=== PATIENT | male | born 1950 | race Caucasian/White ===

== ENCOUNTER 2020-01-23 12:06 | Outpatient (REF) | payer MEDICARE, SELFPAY ==
[2020-01-23 14:49] LABS: Cholesterol 228 mg/dL; HDL Cholesterol 46 mg/dL; LDL Cholesterol Calculated 152 mg/dl; Triglycerides 153 mg/dL
== END 2020-01-23 12:07 | disposition home or self-care (01) ==
LOC: HO.HMGCLDS 12:06
PROVIDERS: PCP Internal Medicine; Visit Provider Internal Medicine
DX: E78.5 Hyperlipidemia, unspecified (principal)
CPT/HCPCS: 80061

== ENCOUNTER → 2020-02-23 10:27 | Outpatient (BNVA) | payer MEDICARE, SELFPAY | PROVIDERS: PCP Internal Medicine; Visit Provider Internal Medicine Cardiovascular Disease | DX: I11.9 Hypertensive heart disease without heart failure (principal); I71.2 Thoracic aortic aneurysm, without rupture; E78.5 Hyperlipidemia, unspecified; Z79.82 Long term (current) use of aspirin; Z79.899 Other long term (current) drug therapy | CPT/HCPCS: 93005; 99212 ==

== ENCOUNTER → 2020-03-14 14:38 | Outpatient (REF) | payer MEDICARE, SELFPAY ==
--- NOTE | 2020-03-14 14:43 | CA_ITS ---
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 The visually estimated ejection fraction is between 55-60%. - There is mild aortic valve regurgitation. - There is mild dilatation of the ascending aorta measuring 4.30 cm. Findings Left Ventricle Normal left ventricular cavity size. There is mildly increased left ventricular wall thickness. The left ventricular systolic function is normal. The visually estimated ejection fraction is between 55-60%. There is no evidence of regional wall motion abnormalities. Diastolic function is normal for age. Right Ventricle Normal right ventricular cavity size. There is normal right ventricular systolic function. Atria The left atrium is normal in size. The right atrium is normal in size. Aortic Valve There is a normal trileaflet aortic valve. There is no aortic valve stenosis. There is mild aortic valve regurgitation. Mitral Valve The mitral valve appears normal. There is trace mitral valve regurgitation. There is no mitral valve stenosis. Pulmonic Valve The pulmonic valve was not well visualized. Tricuspid Valve Normal tricuspid valve structure. There is mild tricuspid valve regurgitation. The pulmonary artery systolic pressure is normal. Great Vessels The aortic arch is normal in size. There is mild dilatation of the ascending aorta measuring 4.30 cm. Venous The inferior vena cava is normal in size and collapses greater than 50% with inspiration. Pericardium/Pleural There is no evidence of pericardial effusion. Prior Study Comparison Changes noted compared to prior study dated: 10/12/2018. slight increase in ascending aortic size. In 09/2017, reported as 4.23cm. Measurements 2D Linear Measurements IVSd: 1.22 0.6-0.9/0.6-1.0 cm LVIDd: 5.48 3.9-5.3/4.2-5.9 cm LVIDd Index: 2.29 2.4-3.2/2.2-3.1 cm/m2 LVIDs: 3.14 2.0-3.6 cm LVPWd: 1.21 0.7-1.1 cm Ao Root: 4.20 2.1-3.5 cm LA Diam: 4.00 2.7-3.8/3.0-4.0 cm LAIDs Index: 1.67 1.5-2.3 cm/m2 LV Mass: 343.56 67-162/88-224 g LV Mass Index: 143.75 43-95/49-115 g/m2 LVOT Diam: 2.20 3.0+(-)1.3 cm 2D Systolic Function EF 4C: 56.50 >55% EF 2C: 57.80 >55% EF BiP: 57.60 >55% Mitral Valve MV Pk E: 0.50 MV PK A: 0.74 MV Decel Time: 204.00 E/A: 0.70 E'Lateral: 7.74 E'Medial: 8.41 E/E' Med: 5.90 E/E' Lat: 6.50 PHT: 60.00 MVA PHT: 3.67 Decel [place]: 2.45 Aortic Valve AoV Pk Fabrice: 1.21 AoV Mn Fabrice: 0.84 AoV VTI: 0.24 AoV Pk Grad: 6.00 Aov Mn Grad: 3.00 ADALID Cont.VTI: 3.67 LVOT LVOT Pk Fabrice: 0.95 LVOT Mn Fabrice: 0.65 LVOT VTI: 0.23 LVOT Pk Grad: 4.00 LVOT Mn Grad: 2.00 LVOT Diam: 2.20 LVOT Area: 3.80 Diastolic Function MV Pk E: 0.50 MV Pk A: 0.74 E/A: 0.70 E'Medial: 8.41 E/E' Med: 5.90 E' Laterial: 7.74 E/E' Lat: 6.50 Tricuspid Valve TR Pk Fabrice: 2.21 TR Pk Grad: 20.00 RA Press: 3.00 RVSP: 23.00 Great Vessels Aorta Ao Root-2D: 4.20 2.0-3.7 cm Ao Asc: 4.30 2.1-3.4 cm Pulmonary Valve PV Pk Fabrice: 1.04 Peak PV Grad: 4.00 Updated in Other Vendor System with Status of Final Jose Shepherd MD electronically signed on 03/15/2020 10:58:40 AM with status of Final
== END ==
LOC: HO.CARD 14:38
PROVIDERS: Visit Provider Internal Medicine Cardiovascular Disease
DX: I11.9 Hypertensive heart disease without heart failure (principal); I71.2 Thoracic aortic aneurysm, without rupture
CPT/HCPCS: 93306

== ENCOUNTER 2020-04-11 09:00 | Outpatient (REF) | payer MEDICARE, SELFPAY ==
[2020-04-11 12:14] LABS: Vitamin D 25-OH Total 65.6 ng/mL (>30)
[2020-04-11 12:17] LABS: Alanine Aminotransferase 29 U/L (0-40); Anion Gap 19 (12-20); Aspartate Amino Transferase 15 U/L (5-37); Blood Urea Nitrogen 16 mg/dL (9-16); Calcium 9.1 mg/dL (8.4-10.2); Carbon Dioxide 22 mmol/L (22-29); Chloride 107 mmol/L (96-108); Cholesterol 207 mg/dL; Estimated Glomerular Filt Rate > 60; Glucose Fasting 102 mg/dL (60-99); HDL Cholesterol 52 mg/dL; LDL Cholesterol Calculated 127 mg/dl; Potassium 4.7 mmol/l (3.3-5.1); Sodium 143 mmol/L (135-145); Triglycerides 143 mg/dL
== END 2020-04-11 09:01 | disposition home or self-care (01) ==
LOC: HO.HMGCLDS 09:00
PROVIDERS: PCP Internal Medicine; Visit Provider Internal Medicine
DX: I10 Essential (primary) hypertension (principal); E55.9 Vitamin D deficiency, unspecified
CPT/HCPCS: 36415; 80048; 80061; 82306; 84450; 84460

== ENCOUNTER 2020-06-12 10:59 | Outpatient (REF) | payer MEDICARE, SELFPAY ==
[2020-06-12 14:45] LABS: Prostate Specific Antigen 0.69 ng/mL (<0.05-4.0)
== END 2020-06-12 11:00 | disposition home or self-care (01) ==
LOC: HO.HMGCLDS 10:59
PROVIDERS: PCP Internal Medicine; Visit Provider Urology
DX: Z12.5 Encounter for screening for malignant neoplasm of prostate (principal); R97.20 Elevated prostate specific antigen [PSA]
CPT/HCPCS: 36415; 84153

== ENCOUNTER → 2020-06-22 09:12 | Outpatient (BNVA) | payer MEDICARE, SELFPAY | PROVIDERS: Visit Provider Urology | DX: Z13.89 Encounter for screening for other disorder (principal) | CPT/HCPCS: Q3014 ==

== ENCOUNTER 2020-10-05 08:43 | Outpatient (REF) | payer MEDICARE, SELFPAY ==
[2020-10-05 12:17] LABS: Vitamin D 25-OH Total 75.3 ng/mL (>30)
[2020-10-05 12:18] LABS: Alanine Aminotransferase 23 U/L (0-40); Anion Gap 14 (12-20); Aspartate Amino Transferase 11 U/L (5-37); Blood Urea Nitrogen 15 mg/dL (9-16); Carbon Dioxide 24 mmol/L (22-29); Chloride 110 mmol/L (96-108); Cholesterol 202 mg/dL; Estimated Glomerular Filt Rate > 60; Glucose Fasting 100 mg/dL (60-99); HDL Cholesterol 48 mg/dL; LDL Cholesterol Calculated 140 mg/dl; Potassium 4.7 mmol/L (3.3-5.1); Sodium 143 mmol/L (135-145); Triglycerides 72 mg/dL
== END 2020-10-05 08:44 | disposition home or self-care (01) ==
LOC: HO.HMGCLDS 08:43
PROVIDERS: PCP Internal Medicine; Visit Provider Internal Medicine
DX: E78.00 Pure hypercholesterolemia, unspecified (principal); I71.2 Thoracic aortic aneurysm, without rupture; I11.9 Hypertensive heart disease without heart failure
CPT/HCPCS: 36415; 80048; 80061; 82306; 84450; 84460

== ENCOUNTER 2020-12-29 10:32 | Outpatient (REF) | payer MEDICARE, SELFPAY ==
[2020-12-29 13:53] LABS: Alanine Aminotransferase 34 U/L (0-40); Anion Gap 13 (12-20); Aspartate Amino Transferase 20 U/L (5-37); Blood Urea Nitrogen 14 mg/dL (9-16); Calcium 9.1 mg/dL (8.4-10.2); Carbon Dioxide 23 mmol/L (22-29); Chloride 109 mmol/L (96-108); Cholesterol 251 mg/dL; Estimated Glomerular Filt Rate > 60; Glucose Fasting 103 mg/dL (60-99); HDL Cholesterol 50 mg/dL; LDL Cholesterol Calculated 184 mg/dl; Potassium 5.1 mmol/L (3.3-5.1); Sodium 140 mmol/L (135-145); Triglycerides 85 mg/dL
== END 2020-12-29 10:33 | disposition home or self-care (01) ==
LOC: HO.HMGCLDS 10:32
PROVIDERS: PCP Internal Medicine; Visit Provider Internal Medicine
DX: E78.00 Pure hypercholesterolemia, unspecified (principal); I10 Essential (primary) hypertension; I71.2 Thoracic aortic aneurysm, without rupture
CPT/HCPCS: 36415; 80048; 80061; 84450; 84460

== ENCOUNTER → 2021-02-22 10:05 | Outpatient (BNVA) | payer MEDICARE, SELFPAY | PROVIDERS: PCP Internal Medicine; Referring Provider Internal Medicine; Visit Provider Internal Medicine Cardiovascular Disease | DX: I71.2 Thoracic aortic aneurysm, without rupture (principal); I11.9 Hypertensive heart disease without heart failure | CPT/HCPCS: 93005; 99212 ==

== ENCOUNTER → 2021-04-15 09:06 | Outpatient (REF) | payer MEDICARE, SELFPAY ==
--- NOTE | 2021-04-15 09:11 | CA_ITS ---
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 The calculated ejection fraction is 55% by biplane method. - The basal inferior segment is hypokinetic. - Trace to mild aortic regurgitation. - Ascending aorta measurements 4.3cm and 4.5cm. At sinus of valsalva 4cm. Findings Left Ventricle Normal left ventricular cavity size. There is moderately increased left ventricular wall thickness. The left ventricular systolic function is normal. The calculated ejection fraction is 55% by biplane method. E/E prime ratio is <8, consistent with normal filling pressures. Evidence suggests grade I (mild) diastolic dysfunction. Wall Motion Rest Echo Findings The basal inferior segment is hypokinetic. Right Ventricle Normal right ventricular cavity size and systolic function. Atria Both atria are normal in size. Aortic Valve There is a normal trileaflet aortic valve. There is no aortic valve stenosis. Trace to mild aortic regurgitation. Mitral Valve The mitral valve appears normal. There is trace mitral valve regurgitation. There is no mitral valve stenosis. Pulmonic Valve The pulmonic valve was not well visualized. Tricuspid Valve Normal tricuspid valve structure. There is mild tricuspid valve regurgitation. The pulmonary artery systolic pressure is normal. Great Vessels There is mild dilatation of the sinuses of Valsalva and moderate dilatation of the ascending aorta. Ascending aorta measurements 4.3cm and 4.5cm. At sinus of valsalva 4cm. Venous The inferior vena cava is normal in size. Pericardium/Pleural There is no evidence of pericardial effusion. Prior Study Comparison Changes noted compared to prior study dated: 03/14/2020. Slight increase in ascending aortic size. Could also be technical in nature. See comments on wall motion. Measurements 2D Linear Measurements IVSd: 1.24 0.6-0.9/0.6-1.0 cm LVIDd: 5.04 3.9-5.3/4.2-5.9 cm LVIDd Index: 2.14 2.4-3.2/2.2-3.1 cm/m2 LVIDs: 2.85 2.0-3.6 cm LVPWd: 1.25 0.7-1.1 cm Ao Root: 4.00 2.1-3.5 cm LA Diam: 4.30 2.7-3.8/3.0-4.0 cm LAIDs Index: 1.83 1.5-2.3 cm/m2 LV Mass: 310.89 67-162/88-224 g LV Mass Index: 132.29 43-95/49-115 g/m2 LVOT Diam: 2.50 3.0+(-)1.3 cm 2D Systolic Function EF 4C: 58.80 >55% EF 2C: 47.10 >55% EF BiP: 54.80 >55% Mitral Valve MV Pk E: 0.55 MV PK A: 0.75 MV Decel Time: 234.00 E/A: 0.70 E'Lateral: 6.85 E'Medial: 5.87 E/E' Med: 9.40 E/E' Lat: 8.10 PHT: 69.00 MVA PHT: 3.19 Decel [place]: 2.36 Aortic Valve AoV Pk Fabrice: 1.31 AoV Mn Fabrice: 0.93 AoV VTI: 0.32 AoV Pk Grad: 7.00 Aov Mn Grad: 4.00 ADALID Cont.VTI: 3.82 LVOT LVOT Pk Fabrice: 1.01 LVOT Mn Fabrice: 0.67 LVOT VTI: 0.25 LVOT Pk Grad: 4.00 LVOT Mn Grad: 2.00 LVOT Diam: 2.50 LVOT Area: 4.91 Diastolic Function MV Pk E: 0.55 MV Pk A: 0.75 E/A: 0.70 E'Medial: 5.87 E/E' Med: 9.40 E' Laterial: 6.85 E/E' Lat: 8.10 Right Ventricle TAPSE (mm): 22.00 TVS' Fabrice: 9.00 Tricuspid Valve TR Pk Fabrice: 2.54 TR Pk Grad: 26.00 Great Vessels Aorta Ao Root-2D: 4.00 2.0-3.7 cm Sinus of Valsalva: 4.00 2.0-3.5 cm Ao Asc: 4.50 2.1-3.4 cm Pulmonary Valve PV Pk Fabrice: 0.96 Peak PV Grad: 4.00 Updated in Other Vendor System with Status of Final Jose Shepherd MD electronically signed on 04/15/2021 4:53:06 PM with status of Final
== END ==
LOC: HO.CARD 09:06
PROVIDERS: PCP Internal Medicine; Visit Provider Internal Medicine Cardiovascular Disease
DX: I71.2 Thoracic aortic aneurysm, without rupture (principal)
CPT/HCPCS: 93306

== ENCOUNTER → 2021-06-26 09:07 | Outpatient (BNVA) | payer MEDICARE, SELFPAY | PROVIDERS: PCP Internal Medicine; Visit Provider Urology | DX: N40.0 Benign prostatic hyperplasia without lower urinary tract symptoms (principal) | CPT/HCPCS: 51798; 99212 ==

== ENCOUNTER 2021-06-26 10:45 | Outpatient (REF) | payer MEDICARE, SELFPAY ==
[2021-06-26 15:14] LABS: Alanine Aminotransferase 24 U/L (0-40); Anion Gap 12 (12-20); Aspartate Amino Transferase 16 U/L (5-37); Blood Urea Nitrogen 14 mg/dL (9-16); Calcium 9.6 mg/dL (8.4-10.2); Carbon Dioxide 25 mmol/L (22-29); Chloride 108 mmol/L (96-108); Cholesterol 251 mg/dL; Estimated Glomerular Filt Rate > 60; Glucose Fasting 103 mg/dL (60-99); HDL Cholesterol 46 mg/dL; LDL Cholesterol Calculated 186 mg/dl; Potassium 5.2 mmol/L (3.3-5.1); Sodium 140 mmol/L (135-145); Triglycerides 95 mg/dL
== END 2021-06-26 10:46 | disposition home or self-care (01) ==
LOC: HO.HMGCLDS 10:45
PROVIDERS: PCP Internal Medicine; Visit Provider Internal Medicine
DX: E78.00 Pure hypercholesterolemia, unspecified (principal); I10 Essential (primary) hypertension; I71.2 Thoracic aortic aneurysm, without rupture
CPT/HCPCS: 36415; 51798; 80048; 80061; 84450; 84460; 99212

== ENCOUNTER → 2022-02-24 10:34 | Outpatient (BNVA) | payer MEDICARE, SELFPAY | PROVIDERS: PCP Internal Medicine; Referring Provider Internal Medicine; Visit Provider Internal Medicine Cardiovascular Disease | DX: I71.20 Thoracic aortic aneurysm, without rupture, unspecified (principal) | CPT/HCPCS: 93005; 99212 ==

== ENCOUNTER → 2022-03-25 09:21 | Outpatient (REF) | payer MEDICARE, SELFPAY ==
--- NOTE | 2022-03-25 09:23 | CA_ITS ---
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 The calculated ejection fraction is 58% by biplane method. - Basal inferior segment appears hypokinetic; in some views akinetic. - There is mild dilatation of the sinuses of Valsalva measuring 4.29 cm and mild dilatation of the ascending aorta measuring 4.40 cm. Findings Left Ventricle Normal left ventricular cavity size. There is mildly increased left ventricular wall thickness. The left ventricular systolic function is normal. The calculated ejection fraction is 58% by biplane method. Diastolic function is normal for age. There is moderate septal asymmetric hypertrophy. Basal inferior segment appears hypokinetic; in some views akinetic. Right Ventricle Mildly increased right ventricular cavity size. There is normal right ventricular systolic function. Atria The left atrium is moderately dilated. The right atrium is mildly dilated. Aortic Valve There is a normal trileaflet aortic valve. There is no aortic valve stenosis. There is trace (trivial) aortic valve regurgitation. Mitral Valve The mitral valve appears normal. There is trace mitral valve regurgitation. There is no mitral valve stenosis. Pulmonic Valve The pulmonic valve is likely normal. Tricuspid Valve Normal tricuspid valve structure. There is mild tricuspid valve regurgitation. There is no evidence of pulmonary hypertension. Great Vessels There is mild dilatation of the sinuses of Valsalva measuring 4.29 cm and mild dilatation of the ascending aorta measuring 4.40 cm. Venous The inferior vena cava is mildly dilated and collapses greater than 50% with inspiration. Pericardium/Pleural There is no evidence of pericardial effusion. Prior Study Comparison No significant change compared to prior study dated: 04/15/2021. Measurements 2D Linear Measurements IVSd: 1.36 0.6-0.9/0.6-1.0 cm LVIDd: 5.09 3.9-5.3/4.2-5.9 cm LVIDd Index: 2.15 2.4-3.2/2.2-3.1 cm/m2 LVIDs: 3.63 2.0-3.6 cm LVPWd: 1.16 0.7-1.1 cm LA Diam: 3.90 2.7-3.8/3.0-4.0 cm LAIDs Index: 1.65 1.5-2.3 cm/m2 LV Mass: 321.19 67-162/88-224 g LV Mass Index: 135.52 43-95/49-115 g/m2 LVOT Diam: 2.20 3.0+(-)1.3 cm 2D Systolic Function EF 4C: 60.60 >55% EF 2C: 54.20 >55% EF BiP: 58.40 >55% Mitral Valve MV Pk E: 0.65 MV PK A: 0.63 MV Decel Time: 288.00 E/A: 1.00 E'Lateral: 7.07 E'Medial: 6.53 E/E' Med: 9.90 E/E' Lat: 9.20 PHT: 84.00 MVA PHT: 2.62 Decel [place]: 2.25 Aortic Valve AoV Pk Fabrice: 1.35 AoV Mn Fabrice: 1.02 AoV VTI: 0.32 AoV Pk Grad: 7.00 Aov Mn Grad: 5.00 ADALID Cont.VTI: 3.07 AI Pk Fabrice: 3.96 AI [place]: 1.79 LVOT LVOT Pk Fabrice: 1.04 LVOT Mn Fabrice: 0.74 LVOT VTI: 0.26 LVOT Pk Grad: 4.00 LVOT Mn Grad: 3.00 LVOT Diam: 2.20 LVOT Area: 3.80 Diastolic Function MV Pk E: 0.65 MV Pk A: 0.63 E/A: 1.00 E'Medial: 6.53 E/E' Med: 9.90 E' Laterial: 7.07 E/E' Lat: 9.20 Right Ventricle TAPSE (mm): 26.20 TVS' Fabrice: 10.80 Tricuspid Valve TR Pk Fabrice: 2.44 TR Pk Grad: 24.00 RA Press: 8.00 RVSP: 32.00 Great Vessels Aorta Sinus of Valsalva: 4.29 2.0-3.[address] [place]: 3.23 1.7-3.4 cm Ao Asc: 4.40 2.1-3.4 cm Updated in Other Vendor System with Status of Final Jose Shepherd MD electronically signed on 03/26/2022 11:40:25 AM with status of Final
== END ==
LOC: HO.CARD 09:21
PROVIDERS: PCP Internal Medicine; Visit Provider Internal Medicine Cardiovascular Disease
DX: I71.20 Thoracic aortic aneurysm, without rupture, unspecified (principal)
CPT/HCPCS: 93306

== ENCOUNTER → 2022-06-26 09:31 | Outpatient (BNVA) | payer MEDICARE, SELFPAY | PROVIDERS: PCP Internal Medicine; Visit Provider Urology | DX: N40.0 Benign prostatic hyperplasia without lower urinary tract symptoms (principal) | CPT/HCPCS: 51798; 99212 ==

== ENCOUNTER 2022-08-22 09:44 | Outpatient (REF) | payer MEDICARE, SELFPAY ==
[2022-08-22 12:39] LABS: Alanine Aminotransferase 22 U/L (0-40); Anion Gap 10 (12-20); Aspartate Amino Transferase 12 U/L (5-37); Blood Urea Nitrogen 16 mg/dL (9-16); Carbon Dioxide 26 mmol/L (22-29); Chloride 111 mmol/L (96-108); Cholesterol 231 mg/dL; Estimated Glomerular Filt Rate > 60; Glucose Fasting 101 mg/dL (60-99); HDL Cholesterol 42 mg/dL; LDL Cholesterol Calculated 174 mg/dl; Potassium 4.4 mmol/L (3.3-5.1); Sodium 143 mmol/L (135-145); Triglycerides 76 mg/dL
== END 2022-08-22 09:45 | disposition home or self-care (01) ==
LOC: HO.HMGCLDS 09:44
PROVIDERS: PCP Internal Medicine; Visit Provider Internal Medicine
DX: E78.00 Pure hypercholesterolemia, unspecified (principal); I11.9 Hypertensive heart disease without heart failure; I71.20 Thoracic aortic aneurysm, without rupture, unspecified
CPT/HCPCS: 36415; 80048; 80061; 84450; 84460

== ENCOUNTER 2023-02-24 09:56 | Outpatient (AMB) | payer MEDICARE, SELFPAY ==
--- NOTE | 2023-02-24 10:04 | MHC.OFFVIS ---
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 He has been doing very well from cardiac perspective. He denies any new symptoms. Remains very active. Denies any exertional chest pain or shortness of breath. His blood pressure is generally well controlled. He has occasional blood pressure is low and he gets lightheaded but this is very seldom. Denies any heart failure symptoms. His last LDL was 174 PFSH Medical History Scarlet fever Immunization refused Benign prostatic hyperplasia Hyperlipidemia Thoracic aortic aneurysm Hypertensive heart disease HTN (hypertension) Surgical History History of ankle surgery Family History Father Cancer Mother Stroke CVD (cardiovascular disease) Housing: House Alcohol intake: current Alcohol intake frequency: a few times a month Patient Tobacco Use Status: Never used Tobacco e-Cigarette/Vaping Use: Never Used service: No Current occupational status: retired Cognitive needs: No Hearing needs: No Vision needs: Yes Review of Systems Const Denies chills, Denies fatigue, Denies fever(s), Denies frequent falls, Denies weakness, Denies weight gain and Denies weight loss ENT Denies dizziness Card Denies chest pain, Denies leg edema, Denies lightheadedness, Denies palpitations, Denies dyspnea, Denies dyspnea on exertion, Denies orthopnea and Denies other (loss of consciousness) Resp Denies cough, Denies dyspnea and Denies dyspnea on exertion GI Denies hematochezia and Denies change in stool character Musc Denies abnormal gait, Denies muscle weakness, Denies numbness, Denies radiating pain into limb and Denies tingling Neuro Denies abnormal gait, Denies dizziness, Denies frequent falls, Denies numbness, Denies tingling and Denies weakness Endo Denies fatigue and Denies palpitations Physical Exam Vital Signs: Last Vital Signs Pulse 69 02/24/23 10:14 BP 110/66 02/24/23 10:14 BMI result Body Mass Index 32.0 Const General: cooperative, healthy appearing, comfortable, alert and awake Nutritional Appearance: obese Orientation/consciousness: patient oriented x3 Limitations: no limitations HEENT Head: Yes normal to inspection, Yes normocephalic and Yes atraumatic Eyes General: appearance normal, both eyes and all related structures Neck Neck: Yes full ROM, Yes trachea midline, Yes supple and Yes no JVD Carotids: other ( No carotid bruit) Chest Chest palpation & inspection: normal inspection of the chest Resp Effort & Inspection: normal respiratory effort Auscultation: clear to auscultation bilaterally Cardio Palpation: normal PMI Rate: regular rate Rhythm: regular rhythm Heart sounds: S1 normal heart sound present, S2 normal heart sound present and Other heart sounds present ( S4) Peripheral pulses: Peripheral pulses 2+ throughout GI Inspection: Yes obesity Auscultation: normal bowel sounds Skin General skin exam: no rashes or lesions noted Neuro General: patient oriented x3 and no focal motor deficits Extrem General: Yes no clubbing, cyanosis or edema Psych Appearance: grossly normal Office Procedures EKG Details: EKG shows normal sinus rhythm with left axis deviation incomplete right bundle-branch block at 69 beats per minute [id number], Complete Assessment & Plan Assessment & Plan (1) Thoracic aortic aneurysm: Comment: Followed by Dr. Rivera Code(s): I71.2 - Thoracic aortic aneurysm, without rupture Plan: Thoracic aortic aneurysm measuring up to 4.4 cm without any symptoms at this point time. No interventions required. Follow-up echocardiogram in a month's time. If there is rapid progression require more sooner appointment and follow-up. If none then will continue follow on a yearly basis. Aggressive risk factor modifications discussed. Blood pressure is well optimized continue the same. Continue low-dose aspirin therapy. Strongly recommend statin therapy as a secondary prevention to target goal LDL less than 70 mg/dL. He said he will think about it. (2) Hypertensive heart disease: Code(s): I11.9 - Hypertensive heart disease without heart failure Plan: Hypertensive heart disease without any evidence of heart failure. Blood pressure is currently well optimized advised to monitor blood pressure at home and maintain a log. Goal blood pressure less than 130/84. Low-salt diet was discussed. Advised to maintain activity level as tolerated. If his lightheaded episodes become more frequent need adjustment of his medications. Will follow up in the clinic in 14 months time, sooner p.r.n.. Thank you for allowing me to partake in his care Orders: Orders CA echo transthoracic complete 1 Month I71.2 - Thoracic aortic aneurysm, without rupture Coding Level of Care Code Est Pt Level 4 (54286) Diagnoses Thoracic aortic aneurysm I71.2 Hypertensive heart disease I11.9 CPT Codes EKG - CPT: 62916-[id number], Complete ([id number])
[2023-02-24 10:14] VITALS: BP 110/66; PULSE 69; BMI 32.0
== END 2023-02-24 10:39 | disposition home or self-care (01) ==
PROVIDERS: Visit Provider Internal Medicine Cardiovascular Disease
DX: I71.20 Thoracic aortic aneurysm, without rupture, unspecified (principal); I11.9 Hypertensive heart disease without heart failure
CPT/HCPCS: 93010; 99214

== ENCOUNTER → 2023-02-24 09:56 | Outpatient (BNVA) | payer MEDICARE, SELFPAY | PROVIDERS: Visit Provider Internal Medicine Cardiovascular Disease | DX: I11.9 Hypertensive heart disease without heart failure (principal); I71.20 Thoracic aortic aneurysm, without rupture, unspecified | CPT/HCPCS: 93005; 99212 ==

== ENCOUNTER → 2023-03-20 10:37 | Outpatient (REF) | payer MEDICARE, SELFPAY ==
--- NOTE | 2023-03-20 10:40 | CA_ITS ---
Transthoracic Echocardiogram Patient (Last, First, Middle): Killian Blount, Gender: Male Date of : 1950 Age: 72 Procedure Date: 03/20/2023 Procedure Type: Transthoracic Echocardiogram Location: OP Height: 187.96 cm Weight: 111.13 kg BSA: 2.37 m2 Heart Rate: 57 bpm BP: 110 / 70 mmHg Creative Project Manager: LEX Referring MD: Herb Rivera MD Symptoms: I71.2 - Thoracic aortic aneurysm, without rupture Study Quality: Adequate ECG Rhythm: Bradycardia Conclusions: - Normal left ventricular size and systolic function. There is mildly increased left ventricular wall thickness. The visually estimated ejection fraction is between 55-60%. - Normal right ventricular cavity size and systolic function. - There is mild dilatation of the sinuses of Valsalva measuring 4.40 cm and mild dilatation of the ascending aorta measuring 4.50 cm. Findings Left Ventricle Normal left ventricular size and systolic function. There is mildly increased left ventricular wall thickness. The visually estimated ejection fraction is between 55-60%. There is no evidence of regional wall motion abnormalities. Diastolic function is indeterminate on the basis of available data. Normal global longitudinal strain -18.8%. Right Ventricle Normal right ventricular cavity size and systolic function. Atria The left atrium is normal in size. Aortic Valve There is a normal trileaflet aortic valve. There is mild calcification of the aortic valve. There is no aortic valve stenosis. There is trace (trivial) aortic valve regurgitation. Mitral Valve The mitral valve appears normal. There is no mitral valve regurgitation. There is no mitral valve stenosis. Pulmonic Valve The pulmonic valve is likely normal. There is trace pulmonic valve regurgitation. Tricuspid Valve Normal tricuspid valve structure. There is trace tricuspid valve regurgitation. Mildly elevated right atrial pressure. There is no evidence of pulmonary hypertension. Great Vessels There is mild dilatation of the sinuses of Valsalva measuring 4.40 cm and mild dilatation of the ascending aorta measuring 4.50 cm. The visualized portions of the pulmonary artery and branches are normal. Venous The inferior vena cava is dilated and collapses greater than 50% with inspiration. Pericardium/Pleural There is no evidence of pericardial effusion. Prior Study Comparison Changes noted compared to prior study dated: 03/25/2022. Ascending aorta 4.5 cm from 4.4 cm. Sinus of valsalva 4.4 cm (previously 4.2 cm). Measurements 2D Linear Measurements IVSd: 1.21 0.6-0.9/0.6-1.0 cm LVIDd: 4.73 3.9-5.3/4.2-5.9 cm LVIDd Index: 2.00 2.4-3.2/2.2-3.1 cm/m2 LVIDs: 2.96 2.0-3.6 cm LVPWd: 1.22 0.7-1.1 cm LA Diam: 4.10 2.7-3.8/3.0-4.0 cm LAIDs Index: 1.73 1.5-2.3 cm/m2 LV Mass: 271.69 67-162/88-224 g LV Mass Index: 114.64 43-95/49-115 g/m2 LVOT Diam: 2.30 3.0+(-)1.3 cm 2D Systolic Function EF 4C: 54.30 >55% EF 2C: 63.20 >55% EF BiP: 59.70 >55% Aortic Valve AoV Pk Fabrice: 1.13 AoV Mn Fabrice: 0.84 AoV VTI: 0.28 AoV Pk Grad: 5.00 Aov Mn Grad: 3.00 ADALID Cont.VTI: 3.67 AI Pk Fabrice: 3.19 AI Bonner: 1.20 LVOT LVOT Pk Fabrice: 1.01 LVOT Mn Fabrice: 0.72 LVOT VTI: 0.24 LVOT Pk Grad: 4.00 LVOT Mn Grad: 2.00 LVOT Diam: 2.30 LVOT Area: 4.15 Tricuspid Valve TR Pk Fabrice: 2.43 TR Pk Grad: 24.00 RA Press: 8.00 RVSP: 32.00 Great Vessels Aorta Sinus of Valsalva: 4.40 2.0-3.5 cm Ao Asc: 4.50 2.1-3.4 cm Ao Arch: 3.50 Pulmonary Valve PV Pk Fabrice: 0.92 Peak PV Grad: 3.00 Updated in Other Vendor System with Status of Final Drew Bautista MD electronically signed on 03/20/2023 2:27:16 PM with status of Final
== END ==
LOC: HO.CARD 10:37
PROVIDERS: PCP Internal Medicine; Visit Provider Internal Medicine Cardiovascular Disease
DX: I71.20 Thoracic aortic aneurysm, without rupture, unspecified (principal)
CPT/HCPCS: 93306; 93356

== ENCOUNTER → 2023-03-20 10:40 | Outpatient (BNV) | payer MEDICARE, SELFPAY | PROVIDERS: PCP Internal Medicine; Visit Provider Internal Medicine Cardiovascular Disease | DX: I35.8 Other nonrheumatic aortic valve disorders (principal) | CPT/HCPCS: 93306 ==

== ENCOUNTER 2023-06-30 09:12 | Outpatient (AMB) | payer MEDICARE, SELFPAY ==
--- NOTE | 2023-06-30 09:20 | MHC.OFFVIS ---
Intake Intake Visit Reasons: 1Y PVR(Confirmed) Intake Note: Patient is Present for Follow Up PVR Urology Medication: Finasteride Antibiotic Allergies: None Blood Thinners:Aspirin Confirmed Pharmacy: [facility] PVR:22 Allergies mold Allergy (Unknown, Verified 06/30/23 09:21) unknown Medication List - Last Reconciled 06/30/23 by Dru Cantu MD aspirin (Adult Low Dose Aspirin) 81 mg PO DAILY cholecalciferol (vitamin D3) 250 mcg PO QWEEK finasteride 5 mg PO DAILY 90 days labetalol 100 mg PO BID lisinopril 2.5 mg (1/2 x 5 mg) PO DAILY multivitamin 1 tab PO DAILY saw palmetto 320 mg PO DAILY HPI HPI Comments History of Present Illness Details Killian CARTER is a very pleasant male. He is a patient of Dr Rea. 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 Good flow. Not waking at night Current treatment includes 06/22 , medication, 5-AR - every other day Prostate Symptom Score 11/18 , Moderate (9-19), Bother 3 06/22 , Mild (0-8), Bother 2. Symptoms include 02/21 , incomplete emptying, weak stream, and are progressing 06/22 , weak stream, and are improving. Prior Prostate Score unknown. PSA 06/22 1.5, 06/23 0.9, 06/24 0.7, 08/26 0.9 Prostate volume 30-50gm. Testing at next visit will include bladder scan [facility] Medical History Scarlet fever Immunization refused Benign prostatic hyperplasia Hyperlipidemia Thoracic aortic aneurysm Hypertensive heart disease HTN (hypertension) Surgical History History of ankle surgery Family History Father Cancer Mother Stroke CVD (cardiovascular disease) Social History Housing: House Alcohol intake: current Alcohol intake frequency: a few times a month Patient Tobacco Use Status: Never used Tobacco e-Cigarette/Vaping Use: Never Used service: No Current occupational status: retired Cognitive needs: No Hearing needs: No Vision needs: Yes Review of Systems Const Denies chills and Denies fever(s) Card Reports no additional complaints and Denies syncope Resp Denies cough GI Denies abdominal pain and Denies heartburn Reports as per HPI and Denies change in libido Neuro Denies syncope Psych Denies change in libido Endo Denies change in libido Physical Exam Const General: cooperative, healthy appearing, comfortable and no acute distress Orientation/consciousness: patient oriented x3 HEENT Face and sinus: Yes normal facial exam Mouth: moist mucous membranes Neck Neck: Yes normal visual inspection, Yes full ROM and Yes trachea midline Chest Chest palpation & inspection: normal inspection of the chest Resp Effort & Inspection: normal respiratory effort, able to speak in complete sentences and no respiratory distress GI Inspection: Yes normal to inspection Back/Spine/Pelvis Cervical Spine: normal cervical lordosis Thoracic/Lumbar Spine: thoracic and lumbar spine normal to inspection Skin General skin exam: no rashes or lesions noted Neuro General: patient oriented x3, gait normal, tone normal and moves all extremities Extrem General: Yes normal to inspection and Yes capillary refill normal Office Procedures Post Void Residual Post Residual Void Post Void Residual (PVR): 22 [id number] Void Residual by ultrasound Assessment & Plan Assessment & Plan (1) Benign prostatic hyperplasia: Comment: Followed by Dr. Cantu Code(s): N40.0 - Benign prostatic hyperplasia without lower urinary tract symptoms Plan Twelve month follow-up PVR Orders: Orders AMB Post Void Residual by ultrasound Today N40.0 - Benign prostatic hyperplasia without lower urinary tract symptoms Patient Instructions: Imaging studies, laboratory and physical exam results were discussed and reviewed in detail. No major barriers to patient understanding were identified. An opportunity to ask questions regarding the treatment plan was provided. All questions were answered. The patient expressed understanding and agreement with the above treatment plan. The patient is aware they should contact our office by phone for worsening of their current condition or the appearance of new urologic symptoms. Compliance is encouraged with any medications and followup testing that is ordered. It is a privilege to participate in the urologic care of your patient. If you have any questions or concerns regarding treatment for the above conditions, or other urologic issues, please do not hesitate to contact me. The office telephone contact is [phone]. This note is constructed using voice recognition software. While every effort has been made to ensure accuracy wax pumper errors may have been included. Yours sincerely, Dr Dru Cantu MD, [facility] - Urology Providers of Expert, Compassionate Care for the Genitourinary System Coding Level of Care Code Est Pt Level 4 (49413) Diagnoses Benign prostatic hyperplasia N40.0 CPT Codes Post Residual Void - PVR CPT Code: 15413-Gxwg Void Residual by ultrasound ([id number])
== END 2023-06-30 10:02 | disposition home or self-care (01) ==
PROVIDERS: Visit Provider Urology
DX: N40.0 Benign prostatic hyperplasia without lower urinary tract symptoms (principal)
CPT/HCPCS: 99213

== ENCOUNTER → 2023-06-30 09:12 | Outpatient (BNVA) | payer MEDICARE, SELFPAY | PROVIDERS: Visit Provider Urology | DX: N40.0 Benign prostatic hyperplasia without lower urinary tract symptoms (principal) | CPT/HCPCS: 51798; 99212 ==

== ENCOUNTER 2023-09-14 08:57 | Outpatient (AMB) | payer MEDICARE, SELFPAY ==
--- NOTE | 2023-09-14 09:09 | AM.OFFVISMDC ---
Intake Vital Signs 09/14/23 09:11 Height 6 ft 2 in Weight 251 lb BMI 32.2 BP 122/68 Blood Pressure Location Lt brachial Position Sitting Pulse 70 Pulse Source Pulse Oximeter Pulse Oximetry (%) 95 Oxygen Delivery Method Room Air Intake Visit Reasons: SWV G0439 Intake Note: Pt is here today for his SWV Last colonoscopy 06/23/14 Allergies mold Allergy (Unknown, Verified 09/14/23 10:09) unknown Medication List - Last Reconciled 09/14/23 by Ashlee Pedraza MD aspirin (Adult Low Dose Aspirin) 81 mg PO DAILY cholecalciferol (vitamin D3) 250 mcg PO QWEEK finasteride 5 mg PO DAILY 90 days labetalol 100 mg PO BID lisinopril 2.5 mg (1/2 x 5 mg) PO DAILY multivitamin 1 tab PO DAILY saw palmetto 320 mg PO DAILY HPI SWV G0439 HPI Details SWV ? 72-year-old male, with hypertension, hyperlipidemia, benign prostatic hyperplasia, history of thoracic aortic aneurysm, here today for his subsequent annual wellness visit. He is up-to-date with his screening colonoscopy done 06/23/2014, due again in 2024 . He currently is being followed by Urology, Dr. Cantu for his benign prostatic hyperplasia. He had a fasting lipid panel checked 08/22/2022 with elevated LDL cholesterol and fasting blood sugar in the prediabetic range. Patient however refused to start taking statins, does not believe in them. He also declines getting any vaccines but did receive Tdap in 2018. ? Medical / Social History Reviewed? Past Medical History ?Yes . ? [place] of Care / Care Team list updated ?Yes . ? Surgical/Hospitalization History ?Yes . ? Current Medications (including OTC and supplements) ?Yes . ? Family History ?Yes . ? Tobacco Control form ?Yes . ? AUDIT-C (Alcohol use) form ?Yes . ? Illicit drug use in Social History ?Yes . ? Current diagnosis of depression? ?No ? Appropriate PHQ2/PHQ9 completed ?Yes . ? Data entered by ?Accountant Manager and reviewed by provider ? Fall Risk ? Fall History? Have you had any falls with injury in the past year? ?No . ? Have you had two or more falls in the past year? ?No . ? Fall Risk Assessment: ?No falls in the past year . ? HRA filled out by the patient, reviewed by Provider and scanned. ? SWV ? Balance? Romberg ?negative . ? Tandem walk ?Yes . ? Walk and Turn ?Yes . ? Rise from sit to stand ?Yes . ?Vision? Corrective lens ?Yes ? Vision screen ? Up-to-date, goes to [facility], sought Dr. Barnes and has been referred to Dr. 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 ?Hearing? Whisper test ?pass . ?Written Plan?Completed. See Patient Documents.? [facility] Medical History Scarlet fever Immunization refused Benign prostatic hyperplasia Hyperlipidemia Thoracic aortic aneurysm Hypertensive heart disease HTN (hypertension) Surgical History History of ankle surgery Family History Father Cancer Mother Stroke CVD (cardiovascular disease) Social History Housing: House Alcohol intake: current Alcohol intake frequency: a few times a month Patient Tobacco Use Status: Never used Tobacco e-Cigarette/Vaping Use: Never Used service: No Current occupational status: retired Cognitive needs: No Hearing needs: No Vision needs: Yes Questionnaire Medicare Wellness Checkup [age] What gender do you identify with?: male During the past 4 weeks, how much have you been bothered by emotional problems such as feeling anxious, depressed, irritable, sad or downhearted, and blue?: not at all During the past 4 weeks, has your physical & emotional health limited your social activities with family, friends, neighbors, or groups?: not at all During the past 4 weeks, how much bodily pain have you generally had?: no pain During the past 4 weeks, was someone available to help you if you needed & wanted help?: yes, as much as I wanted During the past 4 weeks, what was the hardest physical activity you could do for at least 2 minutes?: very heavy Can you get to places out of walking distance without help? (For eg., can you travel alone on buses, taxis or drive your car?): Yes Can you go shopping for groceries or clothes without someone's help?: Yes Can you prepare your own meals?: Yes Can you do your housework without help?: Yes Because of any health problems, do you need the help of another person with your personal care needs such as eating, bathing, dressing or getting around the house?: No Can you handle your own money without help?: Yes During the past 4 weeks, how would you rate your health in general?: very good During the past 4 weeks how have things been going for you?: very well; could hardly better Are you having difficulties driving your car?: no Do you always fasten your seat belt when you are in a car?: yes, usually During past 4 weeks, have you been bothered by the following: never: Falling or dizzy when standing up, Trouble eating well?, Teeth or denture problems? and Problems using the telephone?, sometimes: Tiredness or fatigue? and often: Sexual problems? Have you fallen 2 or more times in the past year?: No Are you afraid of falling?: No Are you a smoker?: no During the past 4 weeks, how many drinks of wine, beer, or other alcoholic beverages did you have?: 1 drink or less per week Do you exercise for about 20 minutes 3 or more times a week?: yes, all the time Have you been given information to help with the following?: no: Hazards in your house that might hurt you? and no: Keeping track of your medications? How often do you have trouble taking medicines the way you have been told to take them?: I always take medicine as prescribed How confident are you that you can control & manage most of your health problems?: very confident What is your race?: White Mini Mental State Exam (MMSE) Orientation What is the (year) (season) (date) (day) (month)?: year (2023), season (Spring), date (09/14/2023), day (Thursday) and month (September) Where are we (state) (county) (town or city) (hospital) (floor)?: state ([place]), county ([place]), town or city ([place]) and hospital/clinic ([facility]) Score Score: 9 Activity of Daily Living Bathing - sponge bath, tub bath or shower: receives no assistance (gets in/out by self, if usual bathing means Dressing - getting clothes from closets & drawers, including inner/outer garments & fasteners.: gets clothes & gets completely dressed without help Toileting - going to the 'toilet room' for urine/bowel elimination & cleaning self/arranging clothes: goes to toilet room, cleans self, arranges clothes without help Transfer: moves in & out of bed and chair without help (may use support object) Continence: controls urination/bowel movements completely by self Feeding: feeds self without help Total Score: 0 Information obtained from: patient Using telephone: independent Traveling: independent Shopping: independent Preparing meals: independent Housework: independent Taking medicine: independent Managing money: independent PHQ-9 Over the last 2 weeks, how often have you been bothered by any of the following problems? 1. Little interest or pleasure in doing things: not at all 2. Feeling down, depressed, or hopeless: not at all 3. Trouble falling or staying asleep, or sleeping too much: several days 4. Feeling tired or having little energy: several days 5. Poor appetite or overeating: not at all 6. Feeling bad about yourself - or that you are a failure or have let yourself or your family down: not at all 7. Trouble concentrating on things, such as reading the newspaper or watching television: not at all 8. Moving or speaking so slowly that other people could have noticed. Or the opposite - being so fidgety or restless that you have been moving around a lot more than usual: not at all 9. Thoughts that you would be better off or of hurting yourself in some way: not at all Total score: 2 Depression Screening Interpretation: Negative Depression Screening Done: Yes 83164 - PHQ-9 Billing: Yes Source: Developed by Drs. Cuate King, Padma Gardner, Puma Owens and colleagues, with an educational polly from [employer]. Physical Exam Vital Signs: Last Vital Signs Pulse 70 09/14/23 09:11 BP 122/68 09/14/23 09:11 Pulse Ox 95 09/14/23 09:11 Oxygen Delivery Method Room Air 09/14/23 09:11 BMI result Body Mass Index 32.2 Assessment & Plan Assessment & Plan (1) Encounter for subsequent annual wellness visit (AWV) in Medicare patient: Code(s): Z00.00 - Encounter for general adult medical examination without abnormal findings Plan: Medical wellness checklist reviewed, discussed with patient and updated. Patient does not want to get any vaccinations. Up-to-date with his screening colonoscopy, has known hyperlipidemia but does not want to start any statins, wants to do it through diet and exercise. (2) Hyperlipidemia: Code(s): E78.5 - Hyperlipidemia, unspecified Qualifiers: Hyperlipidemia type: pure hypercholesterolemia Qualified Code(s): E78.00 - Pure hypercholesterolemia, unspecified Plan: Refusing to take any statin, has been following a low-cholesterol diet and getting regular exercise (3) Benign prostatic hyperplasia: Comment: Followed by Dr. Cantu Code(s): N40.0 - Benign prostatic hyperplasia without lower urinary tract symptoms Plan: Followed by Urology, currently on finasteride 5 mg daily (4) Thoracic aortic aneurysm: Comment: Followed by Dr. Rivera Code(s): I71.2 - Thoracic aortic aneurysm, without rupture Plan: Followed by cardiology, currently on aspirin 81 mg daily (5) Hypertensive heart disease: Code(s): I11.9 - Hypertensive heart disease without heart failure Plan: Currently on labetalol, lisinopril Quality Reporting (2019) Depression/Bipolar (159/160/161/177) PHQ-9: Total score: 2 Coding Level of Care Code Medicare Subsequent (G0439) Diagnoses Encounter for subsequent annual wellness visit (AWV) in Medicare patient Z00.00 Pure hypercholesterolemia E78.00 Hyperlipidemia type: pure hypercholesterolemia Benign prostatic hyperplasia N40.0 Thoracic aortic aneurysm I71.2 Hypertensive heart disease I11.9 CPT Codes Advance Care Planning - Advance Care Planning discussion: On file, no changes ([id number]) Advance Care Planning - Time spent: 1-15 minutes, on File ([id number]) Advance Care Planning Advance Care Planning discussion: On file, no changes Date of discussion: 09/10/22 Who was present: Patient Forms completed: Health Care Proxy and MOLST Time spent: 1-15 minutes, on File Actual minutes spent: 15
[2023-09-14 09:11] VITALS: BP 122/68; PULSE 70; O2SAT 95; BMI 32.2
== END 2023-09-14 10:26 | disposition home or self-care (01) ==
PROVIDERS: PCP Internal Medicine; Visit Provider Internal Medicine
DX: Z00.00 Encounter for general adult medical examination without abnormal findings (principal); E78.00 Pure hypercholesterolemia, unspecified; N40.0 Benign prostatic hyperplasia without lower urinary tract symptoms; I71.20 Thoracic aortic aneurysm, without rupture, unspecified; I11.9 Hypertensive heart disease without heart failure
CPT/HCPCS: 1123F; G0439

== ENCOUNTER → 2024-03-22 07:40 | Outpatient (REF) | payer MEDICARE, SELFPAY ==
--- NOTE | 2024-03-22 07:44 | CA_ITS ---
Transthoracic Echocardiogram Patient (Last, First, Middle): Killian Blount, Gender: Male Date of : 1950 Age: 73 Procedure Date: 03/22/2024 Procedure Type: Transthoracic Echocardiogram Location: OP Height: 187. cm Weight: 111.13 kg BSA: 2.36 m2 Heart Rate: 61 bpm BP: 120 / 70 mmHg Bi Architect: LEX Referring MD: Herb Rivera MD Symptoms: I71.2 - Thoracic aortic aneurysm, without rupture Study Quality: Adequate ECG Rhythm: Sinus Conclusions: - The left ventricular systolic function is normal. The calculated ejection fraction is 65% by biplane method. - No obvious valvular pathology seen on this study. - There is mild dilatation of the ascending aorta measuring 4.30 cm. Findings Left Ventricle Normal left ventricular cavity size. There is mildly increased left ventricular wall thickness. The left ventricular systolic function is normal. The calculated ejection fraction is 65% by biplane method. There is no evidence of regional wall motion abnormalities. Diastolic function is normal for age. LV peak GLS -19.9%. Right Ventricle Mildly increased right ventricular cavity size. There is normal right ventricular systolic function. Atria The left atrium is mildly dilated. The right atrium is normal in size. Aortic Valve There is a normal trileaflet aortic valve. There is no aortic valve stenosis. There is trace (trivial) aortic valve regurgitation. Mitral Valve The mitral valve appears normal. There is no mitral valve regurgitation. There is no mitral valve stenosis. Pulmonic Valve The pulmonic valve is likely normal. Tricuspid Valve There is trace tricuspid valve regurgitation. There is no evidence of pulmonary hypertension. Great Vessels The aortic arch is normal in size. There is mild dilatation of the ascending aorta measuring 4.30 cm. Venous The inferior vena cava is normal in size and collapses greater than 50% with inspiration. Pericardium/Pleural There is no evidence of pericardial effusion. Prior Study Comparison Changes noted compared to prior study dated: 03/20/2023. Ascending aorta dimensions smaller than prior study, but could be technical. Recommendations, Care & Conclusions No obvious valvular pathology seen on this study. Measurements 2D Linear Measurements IVSd: 1.26 0.6-0.9/0.6-1.0 cm LVIDd: 4.79 3.9-5.3/4.2-5.9 cm LVIDd Index: 2.03 2.4-3.2/2.2-3.1 cm/m2 LVIDs: 2.30 2.0-3.6 cm LVPWd: 1.14 0.7-1.1 cm LA Diam: 3.40 2.7-3.8/3.0-4.0 cm LAIDs Index: 1.44 1.5-2.3 cm/m2 LV Mass: 272.26 67-162/88-224 g LV Mass Index: 115.37 43-95/49-115 g/m2 LVOT Diam: 2.30 3.0+(-)1.3 cm 2D Systolic Function EF 4C: 64.70 >55% EF 2C: 65.30 >55% EF BiP: 65.30 >55% Mitral Valve MV Pk E: 0.54 MV PK A: 0.66 MV Decel Time: 387.00 E/A: 0.80 E'Lateral: 7.40 E'Medial: 7.07 E/E' Med: 7.60 E/E' Lat: 7.20 PHT: 113.00 MVA PHT: 1.95 Decel [place]: 1.38 Aortic Valve AoV Pk Fabrice: 1.14 AoV Mn Fabrice: 0.85 AoV VTI: 0.28 AoV Pk Grad: 5.00 Aov Mn Grad: 3.00 ADALID Cont.VTI: 3.29 LVOT LVOT Pk Fabrice: 0.93 LVOT Mn Fabrice: 0.66 LVOT VTI: 0.22 LVOT Pk Grad: 3.00 LVOT Mn Grad: 2.00 LVOT Diam: 2.30 LVOT Area: 4.15 Diastolic Function MV Pk E: 0.54 MV Pk A: 0.66 E/A: 0.80 E'Medial: 7.07 E/E' Med: 7.60 E' Laterial: 7.40 E/E' Lat: 7.20 Right Ventricle TAPSE (mm): 21.40 TVS' Fabrice: 11.20 Tricuspid Valve TR Pk Fabrice: 2.03 TR Pk Grad: 16.00 RA Press: 8.00 RVSP: 24.00 Great Vessels Aorta Sinus of Valsalva: 3.80 2.0-3.5 cm Ao Asc: 4.30 2.1-3.4 cm Ao Arch: 3.50 Pulmonary Valve PV Pk Fabrice: 0.81 Peak PV Grad: 3.00 Updated in Other Vendor System with Status of Final Jose Shepherd MD electronically signed on 03/24/2024 12:02:02 PM with status of Final
== END ==
LOC: HO.CARD 07:40
PROVIDERS: PCP Internal Medicine; Visit Provider Internal Medicine Cardiovascular Disease
DX: I11.9 Hypertensive heart disease without heart failure (principal); I71.20 Thoracic aortic aneurysm, without rupture, unspecified
CPT/HCPCS: 93306

== ENCOUNTER → 2024-03-22 07:44 | Outpatient (BNV) | payer MEDICARE, SELFPAY | PROVIDERS: PCP Internal Medicine; Visit Provider Internal Medicine | DX: I71.21 Aneurysm of the ascending aorta, without rupture (principal); I51.89 Other ill-defined heart diseases | CPT/HCPCS: 93306; 93356 ==

== ENCOUNTER 2024-04-21 10:12 | Outpatient (AMB) | payer MEDICARE, SELFPAY ==
--- NOTE | 2024-04-21 10:31 | A.OFFVIS_ITS ---
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 Denies any new cardiac symptoms. Remains very active. Denies any prolonged palpitation irregular heartbeat. Denies any worsening shortness of breath, orthopnea, PND. No exertional chest pain. His echocardiogram shows preserved LV ejection fraction with mildly dilated ascending aorta at 4.3 cm. No significant change. LDL remains significantly elevated. [facility] Medical History Scarlet fever Immunization refused Benign prostatic hyperplasia Hyperlipidemia Thoracic aortic aneurysm Hypertensive heart disease HTN (hypertension) Surgical History History of ankle surgery Family History Father Cancer Mother Stroke CVD (cardiovascular disease) Social History Housing: House Alcohol intake: current Alcohol intake frequency: a few times a month Patient Tobacco Use Status: Never used Tobacco e-Cigarette/Vaping Use: Never Used service: No Current occupational status: retired Cognitive needs: No Hearing needs: No Vision needs: Yes Review of Systems Const Denies chills, Denies fatigue, Denies fever(s), Denies frequent falls, Denies weakness, Denies weight gain and Denies weight loss ENT Denies dizziness Card Denies chest pain, Denies leg edema, Denies lightheadedness, Denies palpitations, Denies dyspnea, Denies dyspnea on exertion, Denies orthopnea and Denies other (loss of consciousness) Resp Denies cough, Denies dyspnea and Denies dyspnea on exertion GI Denies hematochezia and Denies change in stool character Musc Denies abnormal gait, Denies muscle weakness, Denies numbness, Denies radiating pain into limb and Denies tingling Neuro Denies abnormal gait, Denies dizziness, Denies frequent falls, Denies numbness, Denies tingling and Denies weakness Endo Denies fatigue and Denies palpitations Physical Exam Vital Signs: Last Vital Signs Pulse 65 04/21/24 10:34 BP 126/74 04/21/24 10:34 BMI result Body Mass Index 31.1 Const General: cooperative, healthy appearing, comfortable, alert and awake Nutritional Appearance: obese Orientation/consciousness: patient oriented x3 Limitations: no limitations HEENT Head: Yes normal to inspection, Yes normocephalic and Yes atraumatic Eyes General: appearance normal, both eyes and all related structures Neck Neck: Yes full ROM, Yes trachea midline, Yes supple and Yes no JVD Carotids: other ( No carotid bruit) Chest Chest palpation & inspection: normal inspection of the chest Resp Effort & Inspection: normal respiratory effort Auscultation: clear to auscultation bilaterally Cardio Palpation: normal PMI Rate: regular rate Rhythm: regular rhythm Heart sounds: S1 normal heart sound present, S2 normal heart sound present and Other heart sounds present ( S4) Peripheral pulses: Peripheral pulses 2+ throughout GI Inspection: Yes obesity Auscultation: normal bowel sounds Skin General skin exam: no rashes or lesions noted Neuro General: patient oriented x3 and no focal motor deficits Extrem General: Yes no clubbing, cyanosis or edema Psych Appearance: grossly normal Office Procedures EKG Details: EKG shows normal sinus rhythm with left axis deviation with incomplete right bundle-branch block with LVH criteria with nonspecific ST T wave changes [id number], Complete Assessment & Plan Assessment & Plan (1) Thoracic aortic aneurysm: Comment: Followed by Dr. Rivera Code(s): I71.2 - Thoracic aortic aneurysm, without rupture Category: Medical Plan: Thoracic aortic aneurysm which is mild. Continue to monitor annually by echocardiogram. Continue aggressive blood pressure control. Advised to avoid sudden strenuous isometric exercise. Management of aneurysm was discussed and does not appear that requires repair at this point in time. (2) Hypertensive heart disease: Code(s): I11.9 - Hypertensive heart disease without heart failure Category: Medical Plan: Hypertension with hypertensive heart disease. Clinically no signs and symptoms of heart failure. Blood pressure is extremely well optimized on current therapy importance of good blood pressure control was discussed. He understands and agrees. Low-salt diet was discussed advised to maintain activity level as tolerated. His LDL significantly elevated and suggest correction although he is adamant about not using any lipid lowering therapy. Rationale was discussed. He understands agrees. Follow up in the clinic in 1 year's time, sooner p.r.n.. Thank you for allowing me to partake in his care Orders: Orders CA echo transthoracic complete 1 Year I71.2 - Thoracic aortic aneurysm, without rupture Coding Level of Care Code Est Pt Level 4 (08639) Complex EM visit Add On G2211 Diagnoses Thoracic aortic aneurysm I71.2 Hypertensive heart disease I11.9 CPT Codes EKG - CPT: 97408-[id number], Complete ([id number])
[2024-04-21 10:34] VITALS: BP 126/74; PULSE 65; BMI 31.1
== END 2024-04-21 11:31 | disposition home or self-care (01) ==
PROVIDERS: PCP Internal Medicine; Visit Provider Internal Medicine Cardiovascular Disease
DX: I71.20 Thoracic aortic aneurysm, without rupture, unspecified (principal); I11.9 Hypertensive heart disease without heart failure
CPT/HCPCS: 93010; 99214; G2211

== ENCOUNTER → 2024-04-21 10:12 | Outpatient (BNVA) | payer MEDICARE, SELFPAY | PROVIDERS: PCP Internal Medicine; Visit Provider Internal Medicine Cardiovascular Disease | DX: I71.20 Thoracic aortic aneurysm, without rupture, unspecified (principal); I11.9 Hypertensive heart disease without heart failure | CPT/HCPCS: 93005; 99212 ==

== ENCOUNTER 2024-06-29 09:12 | Outpatient (AMB) | payer MEDICARE, SELFPAY ==
--- NOTE | 2024-06-29 09:18 | MHC.OFFVIS ---
Intake Visit Reasons: 1y/PVR Intake Note: Patient is Present for 1Y Follow Up PVR Urology Medication: Finasteride Antibiotic Allergies: None Blood Thinners:Aspirin PVR:22 TODAY'S PVR:112ML'S Hazardous Substances Scientist Required: No Allergies mold Allergy (Unknown, Verified 06/29/24 09:19) unknown HPI Comments Details: Killian CARTER is a very pleasant male. He is a patient of Dr Rea. 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 Good flow. Not waking at night Current treatment includes 06/22 , medication, 5-AR - every other day Prostate Symptom Score 02/21 , Moderate (9-19), Bother 3 06/22 , Mild (0-8), Bother 2. Symptoms include 02/21 , incomplete emptying, weak stream, and are progressing 06/22 , weak stream, and are improving. Prior Prostate Score unknown. PSA 06/22 1.5, 06/23 0.9, 06/24 0.7, 08/26 0.9 Prostate volume 30-50gm. Testing at next visit will include bladder scan [facility] Medical History Scarlet fever Immunization refused Benign prostatic hyperplasia Hyperlipidemia Thoracic aortic aneurysm Hypertensive heart disease HTN (hypertension) Surgical History History of ankle surgery Family History Father Cancer Mother Stroke CVD (cardiovascular disease) Social History Housing: House Alcohol intake: current Alcohol intake frequency: a few times a month Patient Tobacco Use Status: Never used Tobacco e-Cigarette/Vaping Use: Never Used service: No Current occupational status: retired Cognitive needs: No Hearing needs: No Vision needs: Yes Review of Systems Const Denies chills and Denies fever(s) Card Reports no additional complaints and Denies syncope Resp Denies cough GI Denies abdominal pain and Denies heartburn Reports as per HPI and Denies change in libido Neuro Denies syncope Psych Denies change in libido Endo Denies change in libido Physical Exam Const General: cooperative, healthy appearing, comfortable and no acute distress Orientation/consciousness: patient oriented x3 HEENT Face and sinus: Yes normal facial exam Mouth: moist mucous membranes Neck Neck: Yes normal visual inspection, Yes full ROM and Yes trachea midline Chest Chest palpation & inspection: normal inspection of the chest Resp Effort & Inspection: normal respiratory effort, able to speak in complete sentences and no respiratory distress GI Inspection: Yes normal to inspection Back/Spine/Pelvis Cervical Spine: normal cervical lordosis Thoracic/Lumbar Spine: thoracic and lumbar spine normal to inspection Skin General skin exam: no rashes or lesions noted Neuro General: patient oriented x3, gait normal, tone normal and moves all extremities Extrem General: Yes normal to inspection and Yes capillary refill normal Office Procedures Post Void Residual Post Residual Void Post Void Residual (PVR): 112 [id number]-Fhzo Void Residual by ultrasound Results AMB Urinalysis, Automated UA Leukoctes 0 Celia/uL Last Edit by OLEKSANDR Bradley on 06/29/24 09:30 UA Nitrite Negative Last Edit by OLEKSANDR Bradley on 06/29/24 09:30 UA Urobilinogen 3.5 mg/dL Last Edit by OLEKSANDR Bradley on 06/29/24 09:30 UA Protein 15 mg/dL Last Edit by OLEKSANDR Bradley on 06/29/24 09:30 UA pH 5.5 Last Edit by OLEKSANDR Bradley on 06/29/24 09:30 UA Blood 0 Nishant/uL Last Edit by OLEKSANDR Bradley on 06/29/24 09:30 UA Specific [place] 1.030 Last Edit by OLEKSANDR Bradley on 06/29/24 09:30 UA Ketone Negative Last Edit by OLEKSANDR Bradley on 06/29/24 09:30 UA Bilirubin 0 mg/dL Last Edit by OLEKSANDR Bradley on 06/29/24 09:30 UA Glucose 0 mg/dL Last Edit by OLEKSANDR Bradley on 06/29/24 09:30 Results Reviewed Results Reviewed: Laboratory Last Values Urine pH (Auto) 5.5 06/29/24 09:29 Specific [place] (Auto) 1.030 06/29/24 09:29 Urine Protein (Auto) 15 mg/dL 06/29/24 09:29 Glucose (UA)(Auto) 0 mg/dL 06/29/24 09:29 Urine Ketones (Auto) Negative 06/29/24 09:29 Urine Blood (Auto) 0 Nishant/uL 06/29/24 09:29 Urine Nitrite (Auto) Negative 06/29/24 09:29 Urine Bilirubin (Auto) 0 mg/dL 06/29/24 09:29 Urine Urobilinogen (Auto) 3.5 mg/dL 06/29/24 09:29 Leukocyte Esterase (Auto) 0 Celia/uL 06/29/24 09:29 Assessment & Plan Assessment & Plan (1) Benign prostatic hyperplasia: Comment: Followed by Dr. Cantu Code(s): N40.0 - Benign prostatic hyperplasia without lower urinary tract symptoms Category: Medical Plan 12 month follow-up office Orders: Orders AMB Urinalysis Automated Today Z13.9 - Encounter for screening, unspecified Prostate Specific Antigen 364 Days N40.0 - Benign prostatic hyperplasia without lower urinary tract symptoms Patient Instructions: This note is constructed using voice recognition software. While every effort has been made to ensure accuracy diversity manager errors may have been included. Imaging studies, laboratory and physical exam results were discussed and reviewed in detail. No major barriers to patient understanding were identified. An opportunity to ask questions regarding the treatment plan was provided. All questions were answered. The patient expressed understanding and agreement with the above treatment plan. The patient is aware they should contact our office by phone for worsening of their current condition or the appearance of new urologic symptoms. Compliance is encouraged with any medications and followup testing that is ordered. It is a privilege to participate in the urologic care of your patient. If you have any questions or concerns regarding treatment for the above conditions, or other urologic issues, please do not hesitate to contact me. The office telephone contact is [phone]. Sincerely, Dr Dru Cantu MD, PADMIN[facility] - Urology Compassionate Specialist Care for the Genitourinary System Coding Level of Care Code Est Pt Level 4 (35750) Complex EM visit Add On G2211 Diagnoses Benign prostatic hyperplasia N40.0 CPT Codes Post Residual Void - PVR CPT Code: 38188-Zbgg Void Residual by ultrasound ([id number])
== END 2024-06-29 10:09 | disposition home or self-care (01) ==
LOC: HO.HUSH 09:13
PROVIDERS: PCP Internal Medicine; Visit Provider Urology
DX: Z13.9 Encounter for screening, unspecified (principal); N40.0 Benign prostatic hyperplasia without lower urinary tract symptoms
CPT/HCPCS: 99214; G2211

== ENCOUNTER → 2024-06-29 09:12 | Outpatient (BNVA) | payer MEDICARE, SELFPAY | PROVIDERS: PCP Internal Medicine; Visit Provider Urology | DX: N40.0 Benign prostatic hyperplasia without lower urinary tract symptoms (principal) | CPT/HCPCS: 51798; 81003; 99212 ==

== ENCOUNTER 2024-09-29 09:53 | Outpatient (REF) | payer MEDICARE, SELFPAY ==
--- OUTSIDE RECORDS SUMMARY | 2024-09-29 11:19 | XMS_ITS | Patient Health Record ---
Author Organization [facility] Address [address] [place] [address] Care Team Providers Care Videotape Recording Engineer Name Role Phone Rona Calle, Christopher Primary Care Provider Jeimy Carlos Harris Jr Unavailable [phone] Reason For Referral No Information Medications Medication SIG (Take, Route, Frequency, Duration) Notes Start Date End Date Status Colyte with Flavor Packs 240 GM As direc zack Orally Over the specified time. for 1 day(s) 02/15/2014 Active hydroCHLOROthiazide 25 MG 1 tablet Orall y Once a day Active amLODIPine Besylate 5 MG 1 tablet Orally Once a day Active Labetalol HCl 200 MG Orally Active Problems Problem Type SNOMED Code ICD Code Onset Dates Problem Status W/U Status Risk Notes Problem 152190273 Colon cancer screening (V76.51) Active confirmed Problem 89762275 Essential hypertension (401.9) Active confirmed Plan Of Treatment Future Test Test Name Order Date COLONOSCOPY 02/15/2014 Insurance Providers Payer Name Payer Address Payer Phone Subscriber Number Group Number Insured Name Patient Relationship to Insured Coverage Start Date Coverage End Date MEDICARE OF [place] [address] [place] [address] [id number] PANCHO CARTER Self - patient is the insured [employer] ATT[employer] CLAIMS [address] [place] [phone] [id number] PANCHO CARTER Self - patient is the insured Medical (General) History Medical History History ICD Code Denies [place],DM,CVA,Lung disease,renal dise ase hypertension Surgical History Surgery Date(Month/Year) lower tibia right ankle
[2024-09-29 13:38] LABS: Alanine Aminotransferase 22 U/L (0-40); Anion Gap 11 (12-20); Aspartate Amino Transferase 16 U/L (5-37); Blood Urea Nitrogen 16 mg/dL (9-16); Calcium 9.2 mg/dL (8.4-10.2); Carbon Dioxide 24 mmol/L (22-29); Chloride 109 mmol/L (96-108); Estimated Glomerular Filt Rate > 60; Glucose Fasting 112 mg/dL (60-99); Sodium 140 mmol/L (135-145)
[2024-09-29 14:00] LABS: Vitamin D 25-OH Total 56.6 ng/mL (>30)
== END 2024-09-29 09:54 | disposition home or self-care (01) ==
LOC: HO.HMGCLDS 09:53
PROVIDERS: PCP Internal Medicine; Visit Provider Internal Medicine
DX: I11.9 Hypertensive heart disease without heart failure (principal)
CPT/HCPCS: 36415; 80048; 82306; 84450; 84460

== ENCOUNTER 2024-10-04 10:44 | Outpatient (AMB) | payer MEDICARE, SELFPAY ==
--- NOTE | 2024-10-04 10:47 | A.OFFVIS_ITS ---
Intake Vital Signs 10/04/24 10:50 Height 6 ft 2 in Weight 247 lb BMI 31.7 BP 116/72 Blood Pressure Location Rt brachial Position Sitting Respiration 15 Pulse 63 Pulse Source Pulse Oximeter Temp 98.3 F Temp Source Oral Pulse Oximetry (%) 96 Intake Visit Reasons: SWV G0439 Intake Note: Pt is here today for his SWV: last colonoscopy 06/23/14 Allergies mold Allergy (Unknown, Verified 10/04/24 14:12) unknown Medication List - Last Reconciled 10/04/24 by Ashlee Pedraza MD aspirin (Adult Low Dose Aspirin) 81 mg PO DAILY cholecalciferol (vitamin D3) 250 mcg PO QWEEK finasteride 5 mg PO DAILY 90 days labetalol 100 mg PO BID lisinopril 2.5 mg (1/2 x 5 mg) PO DAILY multivitamin 1 tab PO DAILY saw palmetto 320 mg PO DAILY HPI SWV G0439 HPI Details SWV ? 73 year-old male, with hypertension, hyperlipidemia, benign prostatic hyperplasia, history of thoracic aortic aneurysm, here today for his subsequent annual wellness visit. He i is due for a screening colonoscopy, last done 06/23/2014. Patient wants to do Cologuard testing instead as last colonoscopy screening came back with normal findings. He currently is being followed by Urology, Dr. Cantu for his benign prostatic hyperplasia. He had a fasting lipid panel checked 08/22/2022 with elevated LDL cholesterol and fasting blood sugar in the prediabetic range was checked do 09/23/2024 which came back at 112 mg/dL. Patient refuses to start taking statins, does not believe in them. He also declines getting any vaccines but did receive Tdap in 2018. ? Medical / Social History Reviewed? Past Medical History ?Yes . ? [place] of Care / Care Team list updated ?Yes . ? Surgical/Hospitalization History ?Yes . ? Current Medications (including OTC and supplements) ?Yes . ? Family History ?Yes . ? Tobacco Control form ?Yes . ? AUDIT-C (Alcohol use) form ?Yes . ? Illicit drug use in Social History ?Yes . ? Current diagnosis of depression? ?No ? Appropriate PHQ2/PHQ9 completed ?Yes . ? Data entered by ?[employer] and reviewed by provider ? Fall Risk ? Fall History? Have you had any falls with injury in the past year? ?No . ? Have you had two or more falls in the past year? ?No . ? Fall Risk Assessment: ?No falls in the past year . ? HRA filled out by the patient, reviewed by Provider and scanned. ? SWV ? Balance? Romberg ?negative . ? Tandem walk ?Yes . ? Walk and Turn ?Yes . ? Rise from sit to stand ?Yes . ?Vision? Corrective lens ?Yes ? Vision screen ? Up-to-date, goes to [facility], sought Dr. Barnes and has been referred to Dr. 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 ?Hearing? Whisper test ?pass . ?Written Plan?Completed. See Patient Documents.? [facility] Medical History (Updated 10/04/24 @ 11:13 by Ashlee Pedraza MD) Impaired fasting glucose Scarlet fever Immunization refused Benign prostatic hyperplasia Hyperlipidemia Thoracic aortic aneurysm Hypertensive heart disease HTN (hypertension) Surgical History History of ankle surgery Family History Father Cancer Mother Stroke CVD (cardiovascular disease) Social History Housing: House Alcohol intake: current Alcohol intake frequency: a few times a month Patient Tobacco Use Status: Never used Tobacco e-Cigarette/Vaping Use: Never Used service: No Current occupational status: retired Cognitive needs: No Hearing needs: No Vision needs: Yes Questionnaire Medicare Wellness Checkup [age] What gender do you identify with?: male During the past 4 weeks, how much have you been bothered by emotional problems such as feeling anxious, depressed, irritable, sad or downhearted, and blue?: not at all During the past 4 weeks, has your physical & emotional health limited your social activities with family, friends, neighbors, or groups?: not at all During the past 4 weeks, how much bodily pain have you generally had?: no pain During the past 4 weeks, was someone available to help you if you needed & wanted help?: yes, as much as I wanted During the past 4 weeks, what was the hardest physical activity you could do for at least 2 minutes?: heavy Can you get to places out of walking distance without help? (For eg., can you travel alone on buses, taxis or drive your car?): Yes Can you go shopping for groceries or clothes without someone's help?: Yes Can you prepare your own meals?: Yes Can you do your housework without help?: Yes Because of any health problems, do you need the help of another person with your personal care needs such as eating, bathing, dressing or getting around the house?: No Can you handle your own money without help?: Yes During the past 4 weeks, how would you rate your health in general?: very good During the past 4 weeks how have things been going for you?: pretty well Are you having difficulties driving your car?: no Do you always fasten your seat belt when you are in a car?: yes, usually During past 4 weeks, have you been bothered by the following: never: Falling or dizzy when standing up, Trouble eating well?, Teeth or denture problems? and Problems using the telephone?, sometimes: Tiredness or fatigue? and often: Sexual problems? Have you fallen 2 or more times in the past year?: No Are you afraid of falling?: No Are you a smoker?: no During the past 4 weeks, how many drinks of wine, beer, or other alcoholic beverages did you have?: no alcohol at all Do you exercise for about 20 minutes 3 or more times a week?: yes, most of the time Have you been given information to help with the following?: no: Hazards in your house that might hurt you? and no: Keeping track of your medications? How often do you have trouble taking medicines the way you have been told to take them?: I always take medicine as prescribed What is your race?: White Mini Mental State Exam (MMSE) Orientation What is the (year) (season) (date) (day) (month)?: year (2024), season (Summer), date (10/04/2024), day (Thursday) and month (October) Where are we (state) (county) (town or city) (hospital) (floor)?: state ([place]), [facility] ([place]), town or city ([place]) and hospital/clinic ([facility]) Score Score: 9 Activity of Daily Living Bathing - sponge bath, tub bath or shower: receives no assistance (gets in/out by self, if usual bathing means Dressing - getting clothes from closets & drawers, including inner/outer garments & fasteners.: gets clothes & gets completely dressed without help Toileting - going to the 'toilet room' for urine/bowel elimination & cleaning self/arranging clothes: goes to toilet room, cleans self, arranges clothes without help Transfer: moves in & out of bed and chair without help (may use support object) Continence: controls urination/bowel movements completely by self Feeding: feeds self without help Total Score: 0 Information obtained from: patient Using telephone: independent Traveling: independent Shopping: independent Preparing meals: independent Housework: independent Taking medicine: independent Managing money: independent PHQ-9 Over the last 2 weeks, how often have you been bothered by any of the following problems? 1. Little interest or pleasure in doing things: not at all 2. Feeling down, depressed, or hopeless: not at all 3. Trouble falling or staying asleep, or sleeping too much: not at all 4. Feeling tired or having little energy: not at all 5. Poor appetite or overeating: not at all 6. Feeling bad about yourself - or that you are a failure or have let yourself or your family down: not at all 7. Trouble concentrating on things, such as reading the newspaper or watching television: not at all 8. Moving or speaking so slowly that other people could have noticed. Or the opposite - being so fidgety or restless that you have been moving around a lot more than usual: not at all 9. Thoughts that you would be better off or of hurting yourself in some way: not at all Total score: 0 Depression Screening Interpretation: Negative Depression Screening Done: Yes 49452 - PHQ-9 Billing: Yes Source: Developed by Drs. Cuate King, Padma Gardner, Puma Owens and colleagues, with an educational polly from [employer]. Physical Exam Vital Signs: Last Vital Signs Temp 98.3 F 10/04/24 10:50 Pulse 63 10/04/24 10:50 Resp 15 10/04/24 10:50 BP 116/72 10/04/24 10:50 Pulse Ox 96 10/04/24 10:50 BMI result Body Mass Index 31.7 Results Reviewed Results Reviewed: Name: Killian Blount Age/Sex: 73/M : 1950 Unit#: [id number] Attend Dr: Ashlee Pedraza MD Re09/29/24 Status: DEP REF Location: [facility] Disch: SPEC : [id number] JAIRO: 09/29/24-1002 STATUS: COMP REQ : [id number] RECD: 09/29/24-[address] [facility] [address]: Ashlee Pedraza MD COMP: 09/29/24-1400 ENTERED: 09/29/24-[address] [facility] [address]: ORDERED: Met Prof Fast, AST, ALT, Vitamin D 25-OH Test Result Flag Reference Sodium 140 135-145 mmol/L Potassium 4.0 3.3-5.1 mmol/L CL 109 H 96-108 mmol/L CO2 24 22-29 mmol/L Gap 11 L 12-20 BUN 16 9-16 mg/dL Creat 0.96 0.5-1.4 mg/dL eGFR > 60 Chronic Kidney Disease: Estimated GFR < 60 mL/min/1.73m2 Severe Kidney Disease: Estimated GFR < 15 mL/min/1.73m2 FBS 112 H 60-99 mg/dL A fasting glucose from 100-125 mg/dl is considered impaired (pre-diabetes). CA 9.2 8.4-10.2 mg/dL AST (GOT) 16 5-37 U/L ALT (GPT) 22 0-40 U/L Vitamin D 25-OH 56.6 >30 ng/mL Health Based Reference Values* < 20 ng/mL Deficient 20-30 ng/mL Insufficient > 30 ng/mL Sufficient Assessment & Plan Assessment & Plan (1) Encounter for subsequent annual wellness visit (AWV) in Medicare patient: Code(s): Z00.00 - Encounter for general adult medical examination without abnormal findings Plan: Medical wellness checklist reviewed, discussed with patient and updated. Patient still continues to refuse getting any vaccines, opts to do Cologuard testing instead of colonoscopy for his takes colon cancer screening fasting labs done to check hemoglobin A1c and lipid panel which is overdue (2) Hypertensive heart disease: Code(s): I11.9 - Hypertensive heart disease without heart failure Plan: Currently on labetalol 100 mg 1 tablet twice a day and lisinopril 2.5 mg daily as well as taking aspirin 81 mg daily (3) Hyperlipidemia: Code(s): E78.5 - Hyperlipidemia, unspecified Qualifiers: Hyperlipidemia type: pure hypercholesterolemia Qualified Code(s): E78.00 - Pure hypercholesterolemia, unspecified Plan: Refuses to start taking any statin for cholesterol treatment. Patient states that he has been eating a healthy diet and has been exercising regularly (4) Impaired fasting glucose: Code(s): R73.01 - Impaired fasting glucose Plan: Your previous fasting blood sugars were elevated above 100 mg/dL. Impaired glucose metabolism increases the risk for developing diabetes mellitus type 2, as well as heart attack and stroke later on. Lifestyle changes that promotes weight loss, healthy eating habits, and regular exercise are important, and can prevent the progression to diabetes Orders: Orders Hemoglobin A1c 10/04/24 E78.00 - Pure hypercholesterolemia, unspecified, I11.9 - Hypertensive heart disease without heart failure, R73.01 - Impaired fasting glucose Glucose Fasting 10/04/24 E78.00 - Pure hypercholesterolemia, unspecified, I11.9 - Hypertensive heart disease without heart failure, R73.01 - Impaired fasting glucose Lipid Panel 10/04/24 E78.00 - Pure hypercholesterolemia, unspecified, I11.9 - Hypertensive heart disease without heart failure, R73.01 - Impaired fasting glucose Referrals Cologuard Test Z12.11 - Encounter for screening for malignant neoplasm of colon, Z12.12 - Encounter for screening for malignant neoplasm of rectum Quality Reporting (2019) Depression/Bipolar (159/160/161/177) PHQ-9: Total score: 0 Coding Level of Care Code Medicare Subsequent (G0439) Diagnoses Encounter for subsequent annual wellness visit (AWV) in Medicare patient Z00.00 Hypertensive heart disease I11.9 Pure hypercholesterolemia E78.00 Hyperlipidemia type: pure hypercholesterolemia Impaired fasting glucose R73.01 CPT Codes Advance Care Planning - Advance Care Planning discussion: On file, no changes ([id number]) Advance Care Planning - Time spent: 1-15 minutes, on File ([id number]) Additional Codes PHQ-9 - 69216 - PHQ-9 Billing: Yes ([id number]) Advance Care Planning Advance Care Planning discussion: On file, no changes Date of discussion: 10/04/24 Who was present: Patient Forms completed: Health Care Proxy and MOLST Time spent: 1-15 minutes, on File Actual minutes spent: 2
[2024-10-04 10:50] VITALS: BP 116/72; PULSE 63; RESP 15; TEMP 36.8; O2SAT 96; BMI 31.7
--- OUTSIDE RECORDS SUMMARY | 2024-10-04 11:57 | XMS_ITS | Patient Health Record ---
Author Organization [facility] Address [address] [place] [address] Care Team Providers Care Geophysical Computer Name Role Phone Rona Calle, Christopher Primary Care Provider Jeimy Carlos Harris Jr Unavailable [phone] Reason For Referral No Information Medications Medication [...] Problem Status W/U Status Risk Notes Problem [id number] Colon cancer screening (V76.51) Active confirmed Problem [id number] Essential hypertension (401.9) Active confirmed Plan Of Treatment Future Test Test Name Order Date COLONOSCOPY 02/15/2014 Insurance Providers Payer Name Payer Address Payer Phone Subscriber Number Group Number Insured Name Patient Relationship to Insured Coverage Start Date Coverage End Date MEDICARE OF [place] [address] [facility] [place] [address] [phone] [id number] PANCHO CARTER Self - patient is the insured MED[employer] ATTN CLAIMS [address] [place] [phone] [id number] PANCHO CARTER Self - patient is the insured Medical (General) History Medical History History ICD Code Denies PR,DM,CVA,Lung disease,renal dise ase hypertension Surgical History Surgery Date(Month/Year) lower tibia right ankle
== END 2024-10-04 12:04 | disposition home or self-care (01) ==
LOC: HO.HMCC 10:45
PROVIDERS: PCP Internal Medicine; Visit Provider Internal Medicine
DX: Z00.00 Encounter for general adult medical examination without abnormal findings (principal); I11.9 Hypertensive heart disease without heart failure; E78.00 Pure hypercholesterolemia, unspecified; R73.01 Impaired fasting glucose

== ENCOUNTER → 2024-10-04 10:44 | Outpatient (BNVA) | payer MEDICARE, SELFPAY | PROVIDERS: PCP Internal Medicine; Visit Provider Internal Medicine | DX: Z00.00 Encounter for general adult medical examination without abnormal findings (principal); I11.9 Hypertensive heart disease without heart failure; E78.00 Pure hypercholesterolemia, unspecified; R73.01 Impaired fasting glucose | CPT/HCPCS: 96127 ==